=== PATIENT | female | born 1960 | race Caucasian/White ===

== ENCOUNTER 2019-09-12 13:13 | Emergency (ER) | payer OTHER ==
[2019-09-12 13:42] LABS: #Lymphocytes 1.9 thou/uL (1.20-3.40); #Monocytes 0.5 thou/uL (0.11-0.59); %Eosinophils 0.8 % (0.0-10.0); %Lymphocytes 43.2 % (21.0-51.0); %Monocytes 11.3 % (0.0-10.0); %Neutrophils 44.7 % (42.0-75.0); Hemoglobin 14.5 g/dL (12.0-16.0); Mean Corpuscular Hemoglobin 30.9 pg (27.0-31.0); Mean Platelet Volume 9.7 fL (7.4-10.4); Platelet Count 160 thou/uL (130-400); RBC Distribution Width 12.2 % (11.5-14.5); Red Blood Cell (RBC) Count 4.67 mill/uL (4.20-5.40); White Blood Cell (WBC) Count 4.4 thou/uL (4.8-10.8)
[2019-09-12] MEDS ORDERED: Ketorolac Tromethamine 30 MG/ML VIAL ONE (13:43)
[2019-09-12] MEDS ORDERED: Ondansetron PF 4 MG/2 ML Vial ONE (13:43)
[2019-09-12 14:11] LABS: ALT (SGPT) 23 U/L (8-55); AST (SGOT) 16 U/L (5-34); Albumin 4.2 g/dL (3.5-5.0); Alkaline Phosphatase 109 U/L (40-110); Anion Gap 17 mmol/L (10-20); BUN (Urea Nitrogen) 16 mg/dL (9.8-20.1); Bilirubin, Total 0.5 mg/dL (0.2-1.2); Calc. Creatinine Clearance 0 mL/min (70-130); Carbon Dioxide 21 mmol/L (22-29); Chloride 107 mmol/L (98-107); Estimated GFR-MDRD 76; Globulin 2.7 g/dL (2.4-3.5); Glucose 145 mg/dL (70-105); Lipase 13 U/L (8-78); Protein, Total 6.9 g/dL (6.0-8.3); Sodium 141 mmol/L (136-145)
--- NOTE | 2019-09-12 14:23 | ULT ---
US Gallbladder RUQ: 09/12/2019 1:35 PM CLINICAL HISTORY: Right upper quadrant abdominal pain. STUDY: Limited right upper quadrant ultrasound of abdomen. COMPARISON: None. FINDINGS: Liver: Size: Normal. Echogenicity: Normal. Contour: Smooth. Mass: None. Bile ducts: No intrahepatic or extrahepatic biliary dilatation. Common bile duct measures 3 mm. Gallbladder: Normal. Pancreas: Head, body, and tail appear normal. Right kidney: There is a prominent renal pelvis without calyceal dilatation Right kidney measuring 9. 3 cm in length. IMPRESSION: Unremarkable exam.
--- NOTE | 2019-09-12 15:32 | CT ---
CT Abdomen Pelvis WO Con: 09/12/2019 2:44 PM HISTORY: Abdominal pain and cramping COMPARISON: None. TECHNIQUE: Multiple contiguous axial images were obtained and a CT of the abdomen and pelvis without IV contrast . Coronal and sagittal reformats were performed. FINDINGS: This examination is limited for the evaluation of solid organs and vascular structures due to the lac k of intravenous contrast. Lower Chest: within normal limits. Abdomen: Liver: within normal limits. Bile Ducts: Normal caliber. Gallbladder: No calcified gallstones. Normal caliber wall. Pancreas: within normal limits. Spleen: within normal limits. Adrenals: within normal limits. Kidneys: Mild right hydronephrosis Pelvis: Reproductive Organs: Status post hysterectomy Ureters: Mild right hydroureter. There is a 2 mm calcification at the right ureterovesical junction. Bladder: within normal limits. Bowel: Normal caliber. Scattered diverticula in the colon. Mesenteric Lymph Nodes: No enlarged mesenteric lymph nodes. Peritoneum: No ascites or free air, no fluid collection. Vessels: Atherosclerotic calcifications in the aorta Retroperitoneum: within normal limits. Abdominal Wall: within normal limits. Bones: Unremarkable. IMPRESSION: 1. Right distal ureteral calcification with mild right hydronephrosis 2. Diverticulosis without evidence of acute diverticulitis
[2019-09-12 16:32] LABS: Bilirubin Negative (Negative); Blood, Urine 2+ (Negative); Clarity Clear (Clear); Glucose, Urine (Dipstick) Normal (Negative); Leukocyte Negative Leu/uL (Negative); Nitrite Negative (Negative); Protein, Urine (Dipstick) 10 mg/dL (Neg-Trace); RBC/HPF Greater than 50 HPF (0-3); Urobilinogen Normal mg/dL (Less than 2); WBC/HPF 0-3 HPF (0-3)
[2019-09-12 16:34] LABS: Bacteria/HPF 1+ HPF (None Seen)
== END 2019-09-12 17:01 | disposition home or self-care (01) ==
LOC: ERS 13:13
DX: N13.2 Hydronephrosis with renal and ureteral calculous obstruction (principal); R55 Syncope and collapse; E03.9 Hypothyroidism, unspecified; Z79.899 Other long term (current) drug therapy
CPT/HCPCS: 36415; 74176; 76705; 80053; 81003; 81015; 83690; 84484; 85025; 93005; 94760; 96361; 96374; 96375; J1885; J2405

== ENCOUNTER 2021-07-21 09:31 | Outpatient (CLI) | payer BC, OTHER | END 2021-07-21 09:32 | disposition home or self-care (01) | LOC: SCSMRI 09:31 | PROVIDERS: ATTEND Family Medicine | DX: M79.672 Pain in left foot (principal); S92.902D Unspecified fracture of left foot, subsequent encounter for fracture with routine healing ==

== ENCOUNTER 2021-07-21 12:37 | Outpatient (CLI) | payer BC, OTHER | END 2021-07-21 12:38 | disposition home or self-care (01) | LOC: BICMAMMO 12:37 | PROVIDERS: ATTEND Family Medicine | DX: Z12.31 Encounter for screening mammogram for malignant neoplasm of breast (principal) | CPT/HCPCS: 77063; 77067 ==